=== PATIENT | female | born 1995 | race Caucasian/White ===

== ENCOUNTER 2018-10-18 22:31 | Emergency (ER) | payer OTHER, MEDICAID, SELFPAY ==
[2018-10-18 22:32] VITALS: BP 124/76; PULSE 96; RESP 15; TEMP 36.3; O2SAT 100; BMI 22.1
--- NOTE | 2018-10-18 22:47 | ED.VIS.GEN ---
History of Present Illness Chief Complaint: Headache Narrative: Patient is a 22-year-old female who presents with a headache. She does have a history of migraines. The location character and associated symptoms are consistent with her previous headaches. She rates her current headache is severe. It began this morning and gradually worsened over the course of a few hours. She describes a sharp stabbing retro-orbital pain. She complains of associated photophobia, nausea, vomiting which she has had with previous migraines. No history of head trauma or injury. No fevers. No neck stiffness. She is 17 weeks . She denies vaginal bleeding, loss of fluids, abdominal pain or pelvic pain. She does note movement. Patient recently had a tooth pulled and is on amoxicillin. Past Medical History - Allergies and Home Meds Allergies/Adverse Reactions: Allergies cefdinir [From Omnicef] Allergy (Verified 10/18/18 22:37) Rash Past Medical History: None Surgical History: - - Dental extraction Review of Systems All systems negative except as indicated General: Denies: Fever Eyes: Reports: - - Photophobia Cardiovascular: Denies: Chest pain Respiratory: Denies: Dyspnea, Cough Gastrointestinal: Reports: Nausea, Vomiting Neurological: Reports: Headache Physical Exam Vital Signs/Narrative: Vital Signs Temp Pulse Resp BP Pulse Ox 10/18/18 22:32 97.3 F L 96 15 124/76 H 100 Inital Vital Signs reviewed: Yes General: Well nourished, Well developed Head: Normocephalic, Atraumatic Eyes: Perrl, EOMI ENT: Moist mucous membranes Neck: Supple Cardiovascular: Regular rate, Regular rhythm Respiratory: No distress, CTA bilaterally Abdomen: Soft Skin: Normal color Neurological: Alert, Normal Strength, Normal Sensation Psychological: Normal affect Diagnostic/Tx/Re-eval - Medical Decision Making Patient was treated with IV fluids and IV Reglan with complete resolution of symptoms. She was advised to follow-up as an outpatient as needed and understands to return for new or worsening symptoms. She was discharged. ED Disposition - Plan for ED Patient: Disposition: Home or Assisted Living Diagnosis: Headache Instructions: HEADACHE, Unspecified
[2018-10-18] MEDS: Metoclopramide 10 MG/2 ML Vial IV (22:56)
[2018-10-18] MEDS: 0.9% Normal Saline 1,000 ML 999 ML IV (22:56)
[2018-10-18 23:59] VITALS: BP 108/72; PULSE 77; RESP 16; O2SAT 99
== END 2018-10-19 | disposition home or self-care (01) ==
PROVIDERS: Emergency Provider Emergency Medicine
DX: O99.352 Diseases of the nervous system complicating pregnancy, second trimester (principal); R51 Headache; Z3A.17 17 weeks gestation of pregnancy
CPT/HCPCS: 96361; 96374; 99283; J7030; A4216

== ENCOUNTER 2019-11-03 09:19 | Emergency (ER) | payer OTHER, MEDICAID, SELFPAY ==
[2019-11-03 09:20] VITALS: BP 130/84; PULSE 92; RESP 17; TEMP 36.3; O2SAT 99; BMI 25.7
--- NOTE | 2019-11-03 09:33 | ED.VIS.GEN ---
History of Present Illness Chief Complaint: Abd Pain Narrative: Chief complaints is abdominal pain. Patient has no significant abdominal pain at this time. Her main complaint is fevers, cough she had nausea and vomiting last night, the fever has resolved since last night. She has tightness in her lower chest bilaterally. She has no back pain she has no rash she has no neck pain or stiffness she has no headache or vision changes. She has no dysuria or hematuria she has no urinary symptoms whatsoever. She has no diarrhea or constipation Past Medical History - Allergies and Home Meds Allergies/Adverse Reactions: Allergies cefdinir [From Omnicef] Allergy (Verified 11/03/19 09:20) Rash Primary Care Physician: Care Physician,No Primary [Primary Care Provider] - Past Medical History: None Surgical History: - - Dental extraction, cholecystectomy, tonsillectomy Smoking Status: Former smoker Review of Systems All systems negative except as indicated General: Reports: Fever Eyes: Denies: Visual changes - bilaterally Cardiovascular: Reports: Chest pain. Denies: Palpitations, Heart racing Respiratory: Reports: Cough. Denies: Dyspnea, Sputum, Dyspnea on exertion Gastrointestinal: Reports: Nausea, Vomiting. Denies: Abdominal pain Genitourinary: Denies: Dysuria, Hematuria Musculoskeletal: Reports: Myalgias. Denies: Arthralgias, Neck pain, Back pain Skin: Denies: Rash, Wounds Neurological: Denies: Headache, Weakness, Parasthesia Hematologic: Denies: Easy bruising Allergy: Denies: Uticaria Physical Exam Vital Signs/Narrative: Vital Signs Temp Pulse Resp BP Pulse Ox 11/03/19 09:20 97.4 F L 92 17 130/84 H 99 General: - - Patient appears relatively comfortable in bed she does not appear in significant distress. Head: Normocephalic, Atraumatic Eyes: Negative for: Pale conjunctiva ENT: - - Slightly dry mucous membranes Neck: Supple, Nontender Cardiovascular: Regular rate, Regular rhythm Respiratory: No distress, CTA bilaterally Abdomen: - - She tells me she has no abdominal pain she has very mild right upper quadrant abdominal pain, she has cholecystectomy scars on the abdomen, she has a negative Gleason's. Most of her pain is upper in the chest wall region. Rectal: Deferred Back: Nontender. Negative for: CVA tenderness Extremities: Nontender, No edema Skin: Normal color Neurological: Alert, Oriented x3 Psychological: Normal affect Diagnostic/Tx/Re-eval - Medical Decision Making Patient has an unremarkable ED work-up. She appears well. We will discharge her. BEE is a send out test and is not back yet. I told her to quarantine herself until she gets test results. She gets any worse she needs to return. At this time she is presumed to have a viral infection. ED Disposition - Plan for ED Patient: Disposition: Home or Assisted Living Diagnosis: Fever, Cough Instructions: ED URI Viral Prescriptions: Ondansetron [Zofran Odt] 4 mg PO Q8H PRN PRN #10 tab PRN Reason: Nausea Transmission Status: Pending to [id number] Referrals: Care Physician,No Primary [Primary Care Provider] - 2 Days
[2019-11-03] MEDS: 0.9% Normal Saline 1,000 ML 1000 ML IV (09:55)
[2019-11-03 09:56] VITALS: BP 130/84; PULSE 92; RESP 17; TEMP 36.3; O2SAT 95
[2019-11-03 10:02] LABS: Absolute Lymphocyte Count 1.62 X10^3/uL (0.83-4.51); Absolute Neutrophil Count 9.7 X10^3/uL (2.0-7.7); Basophil# 0.03 X10^3/uL; Basophil% 0.2 % (0-1); Eosinophil# 0.01 X10^3/uL; Eosinophils% 0.1 % (0-5); Hemoglobin 14.1 g/dL (12.0-15.0); Lymphocyte # 1.62 X10^3/ul (4.0); Mean Corp Hgb Conc 33.6 g/dL (32-36); Mean Corpuscular Hgb 31.1 pg (27.0-32.0); Mean Corpuscular Volume 92.5 fL (81-99); Mean Platelet Vol. 11.4 fl (6.2-12.0); Monocyte# 1.05 X10^3/uL; Monocyte% 8.4 % (0-10); NRBC Flagged by Analyzer 0 % (0-5); Neutrophil # 9.69 X10^3/uL (2.7-7.7); Neutrophil % 77.9 % (47-70); Platelet Count 220 K/mm3 (150-450); RBC Distribution Width CV 13.5 % (11.6-14.6); RBC Distribution Width SD 46.1 fl (35.1-43.9); Red Blood Count 4.54 M/mm3 (4.2-5.4); White Blood Count 12.5 K/mm3 (4.4-11.0)
--- NOTE | 2019-11-03 10:11 | RAD_ITS ---
STUDY: X-RAY CHEST REASON FOR EXAM: Female, 23 years old. Abdomen pain, N/V/D, body aches, fever 102 yesterday, dizziness, upper respiratory congestion TECHNIQUE: Single AP portable view of the chest. COMPARISON: None. FINDINGS: The lungs are clear and expanded. There is no demonstrated pleural abnormality. Normal size heart. Normal mediastinum and louise. Normal visualized pulmonary arteries. Normal visualized aortic arch and descending thoracic aorta. Normal visualized thoracic spine. Normal visualized ribs, clavicles, and shoulders. There is no demonstrated abnormality of the visualized soft tissue structures of the upper abdomen. RAD/Chest 1 View (Portable) IMPRESSION: Normal x-ray examination of the chest. Electronically Signed: Alton Grimes, at 10:32 EDT , Service support ,
[2019-11-03 10:28] LABS: ALB/GLOB Ratio 1.1 RATIO (0.9-2.4); AST(SGOT) 12 U/L (15-37); Alanine Aminotransfer ALT/SGPT 17 U/L (13-56); Alkaline Phosphatase 120 U/L (45-117); Anion Gap 4 (5-15); BUN 9 mg/dL (7-18); BUN/Creat Ratio 12.9 RATIO (10-20); Calcium,Total 8.9 mg/dL (8.5-10.1); Chloride 108 mmol/L (98-107); EST Glomerular Filtration Rate 109 mL/min (>60); Est Glom Filt Rate - Afr Amer 132 mL/min (>60); Estimated Creatinine Clearance 111.51 ml/min; Globulin 3.6 g/dL (2.2-4.2); Glucose 85 mg/dL (74-106); Lipase 41 U/L (73-393); Potassium 3.4 mmol/L (3.5-5.1); Protein, Total 7.6 g/dL (6.4-8.2); Sodium Level 139 mmol/L (136-145)
[2019-11-03 11:30] VITALS: PULSE 73; RESP 18; O2SAT 99
== END 2019-11-03 11:32 | disposition home or self-care (01) ==
PROVIDERS: Emergency Provider Emergency Medicine
DX: R50.9 Fever, unspecified (principal); R05 Cough; Z87.891 Personal history of nicotine dependence
CPT/HCPCS: 71045; 80053; 83690; 85025; 87635; 96360; 99283; C9803; J7030; A4216; U0003

== ENCOUNTER 2020-12-25 08:57 | Emergency (ER) | payer MEDICAID, SELFPAY ==
[2020-12-25 08:58] VITALS: BP 110/60; PULSE 98; RESP 24; TEMP 36.3; O2SAT 100; BMI 22.6
[2020-12-25 09:05] VITALS: PULSE 78; RESP 18; O2SAT 100
--- NOTE | 2020-12-25 09:12 | EX.ED.DYSGE1 ---
HPI History of Present Illness Chief Complaint: General Illness Informant: patient and family Onset/Context/Timing Onset: Weeks Context: Gradual Onset Current Severity: Moderate Maximum Severity: Moderate Narrative Narrative: Patient presents secondary to congestion, vomiting, diarrhea. She reports developing respiratory symptoms with cough and congestion a week ago. She tested negative for Covid on Sunday. 3 days ago she developed nausea, vomiting, and diarrhea. She has tried Zofran and Phenergan at home without improvement. She denies fever. [facility] Medical History Severe headache Shoulder pain Uterine cancer Home Medications metoclopramide HCl [Reglan] 10 mg PO Q6H PRN #14 tab 12/25/20 [Rx Last Taken Unknown] Allergy/AdvReac Type Severity Reaction Status Date / Time cefdinir [From Omnicef] Allergy Rash Verified 12/25/20 09:05 Surgical History History of cholecystectomy History of hysterectomy History of tonsillectomy Social History Smoking Status: Current every day smoker tobacco type: cigarettes alcohol intake: never ROS ROS ED Constitutional Constitutional ED: Denies chills or fever(s) Eyes Eyes: Denies change in vision ENT ENT ED: Denies sore throat Cardiovascular Cardiovascular: Denies chest pain Respiratory/Chest Respiratory/Chest: Reports cough; Denies dyspnea Gastrointestinal Gastrointestinal: Reports abdominal pain, diarrhea, nausea and vomiting Genitourinary Genitourinary ED: Denies dysuria Musculoskeletal Musculoskeletal: Reports myalgias; Denies back pain Integumentary Denies rash Neurologic Neurologic: Reports weakness; Denies headache(s) Allergic/Immunologic Allergic/Immunologic ED: Denies urticaria EXAM Physical Exam Const Vital Signs: 12/25/20 08:58 12/25/20 09:05 12/25/20 09:07 Temperature 97.4 F L Temperature Source Temporal Pulse Rate 98 78 Respiratory Rate 24 H 18 Respiratory Effort Labored Respiratory Pattern Normal Blood Pressure 110/60 Blood Pressure Mean 76 Pulse Ox 100 100 Oxygen Delivery Method Room Air Room Air 12/25/20 11:01 Temperature Temperature Source Pulse Rate 74 Respiratory Rate 16 Respiratory Effort Respiratory Pattern Blood Pressure 112/86 H Blood Pressure Mean 94 Pulse Ox 100 Oxygen Delivery Method Room Air Positive well nourished and well developed General Appearance ED: well developed HEENT Reports moist mucous membranes Eyes PERRL and EOMs intact bilaterally Neck supple Chest Wall inspection of chest normal and palpation of chest normal Resp normal respiratory effort and clear to auscultation bilaterally Cardio regular rate and regular rhythm GI Auscultation: hypoactive bowel sounds Palpation: soft and tender other (Mild diffuse tenderness to palpation. No guarding or rebound.) Extremity normal to inspection Neuro oriented x3 Sensorium / Orientation: alert Psych Mood & Affect: anxious Skin no rashes or lesions noted MDM MDM MDM Narrative Medical decision making narrative: Patient was given a liter IV fluid along with Protonix, Reglan, and Benadryl. Lab work, urinalysis, Covid PCR obtained. Lab Data Attestation: I reviewed the patient's lab results. Labs: Laboratory Results - last 24 hr 12/25/20 12/25/20 12/25/20 09:15 09:15 09:16 WBC 7.9 RBC 5.63 H Hgb 17.4 H Hct 49.6 H MCV 88.1 MCH 30.9 MCHC 35.1 RDW Std Deviation 39.8 RDW Coeff of Shreyas 12.2 Plt Count 297 MPV 11.2 Immature Gran % (Auto) 0.300 Neut % (Auto) 68.8 Lymph % (Auto) 22.3 Davie % (Auto) 8.2 Eos % (Auto) 0.0 Baso % (Auto) 0.4 Absolute Neuts (auto) 5.5 Absolute Lymphs (auto) 1.76 Nucleated RBC % 0 Sodium 136 Potassium 3.3 L Chloride 105 Carbon Dioxide 17.0 L Anion Gap 14 BUN 20 H Creatinine 0.89 Estim Creat Clear Calc 89.67 Est GFR (MDRD) Af Amer 99 Est GFR (MDRD) Non-Af 81 BUN/Creatinine Ratio 22.5 H Glucose 92 Calcium 9.3 Total Bilirubin 0.40 Direct Bilirubin 0.17 AST 22 ALT 15 Alkaline Phosphatase 97 Total Protein 7.9 Albumin 4.1 Globulin 3.8 Lipase 47 L Urine Color Urine Clarity Urine pH Ur Specific [place] Urine Protein Urine Glucose (UA) Urine Ketones Urine Occult Blood Urine Nitrite Urine Bilirubin Urine Urobilinogen Ur Leukocyte Esterase Urine RBC Urine WBC Ur Squamous Epith Cells Urine Bacteria Urine Mucus COVID-19 (MICHELLE) Not Detected 11/06/21 10:20 WBC RBC Hgb Hct MCV MCH MCHC RDW Std Deviation RDW Coeff of Shreyas Plt Count MPV Immature Gran % (Auto) Neut % (Auto) Lymph % (Auto) Davie % (Auto) Eos % (Auto) Baso % (Auto) Absolute Neuts (auto) Absolute Lymphs (auto) Nucleated RBC % Sodium Potassium Chloride Carbon Dioxide Anion Gap BUN Creatinine Estim Creat Clear Calc Est GFR (MDRD) Af Amer Est GFR (MDRD) Non-Af BUN/Creatinine Ratio Glucose Calcium Total Bilirubin Direct Bilirubin AST ALT Alkaline Phosphatase Total Protein Albumin Globulin Lipase Urine Color Yellow Urine Clarity Sl. Cloudy Urine pH 6.0 Ur Specific [place] 1.020 Urine Protein 30 H Urine Glucose (UA) Normal Urine Ketones 150 A* Urine Occult Blood 10 H Urine Nitrite Negative Urine Bilirubin Negative Urine Urobilinogen Normal Ur Leukocyte Esterase Negative Urine RBC 0 SEEN Urine WBC 0 SEEN Ur Squamous Epith Cells 0-5 SEEN Urine Bacteria 1+ Urine Mucus RARE COVID-19 (MICHELLE) Treatment and Re-Evaluation Comments:: Repeat evaluation patient feeling significantly improved. Lab work reveals mild dehydration. Covid PCR negative. Patient be discharged with prescription for Reglan. She has Phenergan and Zofran at home that she can use as well. She will continue supportive care. Discharge Plan Triage Chief Complaint: General Illness ED Provider: Nely Abreu Dx/Rx/DC Orders Clinical Impression: Gastroenteritis Instructions: ED Gastroenteritis, Viral (Adult) Prescriptions: New metoclopramide HCl [Reglan] 10 mg tablet 10 mg PO Q6H PRN (Reason: nausea and vomiting) Qty: 14 RF: 0 Primary Care Provider: Nely Bain Referrals: Nely Bain MD [Primary Care Provider] - 1 Week if not improving Disposition Disposition: Home, Self Care
[2020-12-25 09:18] LABS: Absolute Lymphocyte Count 1.76 X10^3/uL (0.83-4.51); Absolute Neutrophil Count 5.5 X10^3/uL (2.0-7.7); Basophil# 0.03 X10^3/uL; Basophil% 0.4 % (0-1); Hematocrit 49.6 % (37-47); Hemoglobin 17.4 g/dL (12.0-15.0); Lymphocyte # 1.76 X10^3/ul (0.83-4.51); Lymphocyte % 22.3 % (19-41); Mean Corp Hgb Conc 35.1 g/dL (32-36); Mean Corpuscular Hgb 30.9 pg (27.0-32.0); Mean Corpuscular Volume 88.1 fL (81-99); Mean Platelet Vol. 11.2 fl (6.2-12.0); Monocyte# 0.65 X10^3/uL; Monocyte% 8.2 % (0-10); NRBC Flagged by Analyzer 0 % (0-5); Neutrophil # 5.45 X10^3/uL (2.7-7.7); Neutrophil % 68.8 % (47-70); Platelet Count 297 K/mm3 (150-450); RBC Distribution Width CV 12.2 % (11.6-14.6); RBC Distribution Width SD 39.8 fl (35.1-43.9); Red Blood Count 5.63 M/mm3 (4.2-5.4); White Blood Count 7.9 K/mm3 (4.4-11.0)
[2020-12-25] MEDS: 0.9% Normal Saline 1,000 ML 1000 ML IV (09:28)
[2020-12-25] MEDS: DiphenhydrAMINE 50 MG/ML Syringe 12.5 MG IV (09:28)
[2020-12-25] MEDS: Metoclopramide 10 MG/2 ML Vial IV (09:28)
[2020-12-25 09:35] LABS: AST(SGOT) 22 U/L (15-37); Alanine Aminotransfer ALT/SGPT 15 U/L (13-56); Albumin, Serum 4.1 g/dL (3.2-5.0); Alkaline Phosphatase 97 U/L (45-117); Anion Gap 14 (5-15); BUN 20 mg/dL (7-18); BUN/Creat Ratio 22.5 RATIO (10-20); Bilirubin, Direct 0.17 mg/dL (0.00-0.30); Calcium,Total 9.3 mg/dL (8.5-10.1); Chloride 105 mmol/L (98-107); Creatinine, Serum 0.89 mg/dL (0.55-1.02); EST Glomerular Filtration Rate 81 mL/min (>60); Est Glom Filt Rate - Afr Amer 99 mL/min (>60); Estimated Creatinine Clearance 89.67 ml/min; Globulin 3.8 g/dL (2.2-4.2); Glucose 92 mg/dL (74-106); Lipase 47 U/L (73-393); Potassium 3.3 mmol/L (3.5-5.1); Protein, Total 7.9 g/dL (6.4-8.2); Sodium Level 136 mmol/L (136-145)
[2020-12-25 10:29] LABS: Red Blood Cells-Urine 0 SEEN /hpf (0-5); White Blood Cells 0 SEEN /hpf (0-5)
[2020-12-25 10:33] LABS: Color, Urine Yellow (Yellow); Glucose, Dipstick Normal (Normal); Leukocyte Esterase-Dipstick Negative /ul (Negative); Nitrite-Dipstick Negative (Negative); Occult Blood-Urine 10 /ul (Negative); Protein-Dipstick 30 mg/dl (Negative); Urine Bilirubin Dipstick Negative (Negative); Urine Clarity Sl. Cloudy (Clear); Urine Urobilinogen Normal (Normal)
[2020-12-25 10:38] LABS: Ketone-Dipstick 150 mg/dl (Negative)
[2020-12-25 10:40] LABS: Bacteria 1+ /hpf (None Seen); Mucous, Urine RARE /hpf (<or=2+); Squamous Epithelial Cells - UA 0-5 SEEN /hpf (5-10)
--- NOTE | 2020-12-25 10:57 | ED.RN ---
PT NS BOLUS COMPLETE AT 1030. UNABLE TO DOCUMENT IN MAR DUE TO COMPUTER ERROR. INFUSION INTAKE 1000ML.
[2020-12-25] MEDS: 0.9% Normal Saline 1,000 ML 150 ML IV (11:00)
[2020-12-25 11:01] VITALS: BP 112/86; PULSE 74; RESP 16; O2SAT 100
[2020-12-25 12:16] VITALS: PULSE 80; RESP 16; O2SAT 98
== END 2020-12-25 12:20 | disposition home or self-care (01) ==
PROVIDERS: Emergency Provider Emergency Medicine; PCP Internal Medicine
DX: K52.9 Noninfective gastroenteritis and colitis, unspecified (principal); F17.210 Nicotine dependence, cigarettes, uncomplicated
CPT/HCPCS: 80048; 80076; 81001; 83690; 85025; 87635; 96365; 96375; 99284; J7030; U0005; A4216; U0003

== ENCOUNTER → 2024-05-13 | Outpatient (CLI) | payer MEDICAID, SELFPAY | END | disposition home or self-care (01) | LOC: LAB 07:05 | PROVIDERS: PCP Internal Medicine; Referring Provider Internal Medicine Gastroenterology; Visit Provider Internal Medicine Gastroenterology | DX: R11.2 Nausea with vomiting, unspecified (principal); K58.2 Mixed irritable bowel syndrome; K29.70 Gastritis, unspecified, without bleeding | CPT/HCPCS: 36415 ==

== ENCOUNTER → 2024-06-25 | Outpatient (CLI) | payer MEDICAID, SELFPAY ==
[2024-06-25 11:32] LABS: Cholesterol 126 mg/dL (<=200); High Density Lipoprotein 45 mg/dL; Low Density Lipoprotein Calc. 67 mg/dL; Triglycerides 67 mg/dL; Very Low Density Lipoprotein 13 mg/dL (5-40); cholesterol:hdl ratio screen 2.78
== END | disposition home or self-care (01) ==
LOC: LAB 10:28
PROVIDERS: PCP Internal Medicine; Referring Provider Internal Medicine Cardiovascular Disease; Visit Provider Internal Medicine Cardiovascular Disease
DX: R94.31 Abnormal electrocardiogram [ECG] [EKG] (principal)
CPT/HCPCS: 36415; 80061

== ENCOUNTER → 2024-06-26 | Outpatient (CLI) | payer MEDICAID, SELFPAY | END | disposition home or self-care (01) | LOC: LABSPEC 15:28 | PROVIDERS: PCP Internal Medicine; Referring Provider Physician Assistant; Visit Provider Physician Assistant | DX: R82.90 Unspecified abnormal findings in urine (principal) | CPT/HCPCS: 87077; 87086; 87088; 87186 ==